=== PATIENT | female | born 1975 | race Caucasian/White ===

== ENCOUNTER 2019-07-21 19:36 | Emergency (ER) | payer BC ==
--- NOTE | 2019-07-21 19:51 | Emergency Department Record ---
History of Present Illness - General Chief Complaint: Ankle/Foot Injury Stated Complaint: L ANKLE INJURY Time Seen by Provider: 07/21/19 19:49 Source: Patient Mode of Arrival: Wheelchair Limitations: No limitations - History of Present Illness Initial Comments: 44 yo female presents with left ankle pain. She stepped off a 2 foot porch injuring her lateral ankle. No foot or knee pain. No history or prior foot or ankle fracture on the left. Intact skin. Onset/Timin -: Minutes(s) Injury: Ankle: Left Type of Injury: Inversion Place: Street/outdoors Severity: Moderate Severity scale (1-10): 7 Improves With: Nothing Worsens With: Movement, Palpation, Weight bearing Context: Jumping - Related Data Allergies Allergy/AdvReac Type Severity Reaction Status Date / Time bee venom protein (honey bee) Allergy Severe ANAPHYLAXIS Unverified 07/05/19 18:10 Travel Screening - Travel/Exposure Within Last 30 Days Have you traveled within the last 30 days?: No - Travel Symptoms Symptom Screening: None Review of Systems Constitutional: Denies: Chills, Fever, Malaise, Weakness Eyes: Denies: Eye discharge ENT: Denies: Congestion, Throat pain Respiratory: Denies: Cough Cardiovascular: Denies: Chest pain, Syncope Endocrine: Denies: Fatigue Gastrointestinal: Denies: Abdominal pain, Diarrhea, Nausea, Vomiting Genitourinary: Denies: Dysuria, Urgency Musculoskeletal: Reports: Arthralgia. Denies: Back pain Skin: Denies: Bruising, Change in color, Rash Neurological: Denies: Headache, Numbness, Tingling, Weakness Psychiatric: Denies: Anxiety Hematological/Lymphatic: Denies: Easy bleeding, Easy bruising Past Medical History - SOCIAL HISTORY Smoking Status: Never smoker Alcohol Use: None Drug Use: None - RESPIRATORY Hx Respiratory Disorders: Yes Hx Asthma: Yes - CARDIOVASCULAR Hx Cardio Disorders: No - NEURO Hx Neuro Disorders: No - GI Hx GI Disorders: No - Hx Genitourinary Disorders: No - ENDOCRINE Hx Endocrine Disorders: No - MUSCULOSKELETAL Hx Musculoskeletal Disorders: No - PSYCH Hx Psych Problems: No - HEMATOLOGY/ONCOLOGY Hx Hematology/Oncology Disorders: No Family Medical History Any Significant Family History?: No Family Hx Comment (NOT TO BE USED IN PLACE OF ITEMS BELOW): denies Physical Exam - General General Appearance: Alert, Oriented x3, Cooperative, No acute distress Limitations: No limitations - Head Head exam: Atraumatic - Eye Eye exam: Normal appearance. negative: Conjunctival injection - ENT ENT exam: Normal exam Ear exam: Normal external inspection Nasal Exam: Normal inspection Mouth exam: Normal external inspection - Neck Neck exam: Normal inspection - Cardiovascular Peripheral Pulses: 2+: Radial (L) - GI/Abdominal GI/Abdominal exam: Soft - Rectal Rectal exam: Deferred - exam: Deferred - Extremities Extremities exam: Joint swelling. negative: Normal inspection, Tenderness Image of Feet: 1 - swelling, tenderness - Neurological Neurological exam: Alert, Oriented X3 - Psychiatric Psychiatric exam: Normal affect, Normal mood - Skin Skin exam: Dry, Intact, Normal color, Warm Course Vital Signs 07/21/19 19:49 Temperature 98.3 F Pulse Rate [ 98 H Pulse Ox Probe] Respiratory 16 Rate Blood Pressure 136/75 [Left Arm] Pulse Ox 98 - Reevaluation(s) Reevaluation #1: 07/21/19 19:55 Declined pain medication Ice applied 07/21/19 20:35 XR reviewed No visible displaced fracture or dislocation Disposition Disposition: Discharge Clinical Impression: Ankle sprain Qualifiers: Encounter type: initial encounter Involved ligament of ankle: unspecified ligament Laterality: left Qualified Code(s): S93.402A - Sprain of unspecified ligament of left ankle, initial encounter Disposition: Home, Self-Care Condition: (1) Good Instructions: Ankle Sprain (ED) Additional Instructions: Use the crutches and boot for support and protection See your doctor in the next 10 days if the pain is still there Elevate the ankle to minimize swelling Tylenol or Motrin for pain Forms: Patient Portal Access Quality - Quality Measures Quality Measures: N/A - Blood Pressure Screening Does Patient Have Any of the Following: No Blood Pressure Classification: Pre-Hypertensive BP Reading Systolic Measurement: 129 Diastolic Measurement: 72 Screening for High Blood Pressure: < Pre-Hypertensive BP, F/U Documented > [G8950] Pre-Hypertensive Follow-up Interventions: Referral to alternative/primary care provider.
--- NOTE | 2019-07-22 19:57 | RADIOLOGY REPORT ---
EXAM: ANKLE LEFT 3 VIEWS HISTORY: PATIENT STEPPED OFF A PORCH AND INJURED LEFT ANKLE. TECHNIQUE: Three views left ankle. COMPARISON: No prior left ankle series. ENCOUNTER: Initial. FINDINGS: There is prominent soft tissue swelling laterally. On the AP view, there is a very tiny curvilinear calcific-like density inferior to the tip of the lateral malleolus, which could be a tiny avulsion fracture fragment. Elsewhere, no appearance to suggest a fracture identified in the left ankle. Prominent calcaneal spurs, both posteriorly and along the plantar surface. IMPRESSION: 1. PROMINENT SOFT TISSUE SWELLING LATERALLY. 2. POSSIBLE TINY AVULSION FRACTURE INFERIOR TO THE TIP OF THE LATERAL MALLEOLUS. 3. PROMINENT CALCANEAL SPURS. JOB NUMBER: [id number] MTDD
== END 2019-07-21 21:28 | disposition home or self-care (01) ==
LOC: ER 19:36
DX: S93.402A Sprain of unspecified ligament of left ankle, initial encounter (principal); S93.492A Sprain of other ligament of left ankle, initial encounter; W10.8XXA Fall (on) (from) other stairs and steps, initial encounter
CPT/HCPCS: 99283

== ENCOUNTER 2019-08-24 07:41 | Emergency (ER) | payer BC ==
--- NOTE | 2019-08-24 07:54 | Emergency Department Record ---
History of Present Illness - General Chief complaint: Vaginal bleeding Stated complaint: VAGINAL BLEEDING Time Seen by Provider: 08/24/19 07:44 Source: Patient Mode of Arrival: Ambulatory Limitations: No limitations - History of Present Illness Initial comments: 44 yo female presents with vaginal bleeding for about three weeks. The patient reports her last normal menstrual cycle was in May. In june it was irregular. She reports since then it has been irregular with small to large clots. No fever. No dysuria. She had a depot shot one year ago. No fever. No discharge. MD Complaint: Vaginal bleeding -: Week(s) (3) Location: Suprapubic Radiation: Other Severity: Moderate Quality: Cramping Consistency: Intermittent Improves with: None Worsens with: None Patient : No Associated Symptoms: Denies other symptoms - Related Data Allergies Allergy/AdvReac Type Severity Reaction Status Date / Time bee venom protein (honey bee) Allergy Severe ANAPHYLAXIS Verified 08/24/19 07:53 Review of Systems Constitutional: Denies: Chills, Fever, Malaise, Weakness Eyes: Denies: Eye discharge ENT: Denies: Congestion, Throat pain Respiratory: Denies: Cough, Dyspnea Cardiovascular: Denies: Chest pain, Palpitations, Syncope Endocrine: Denies: Fatigue Gastrointestinal: Reports: Abdominal pain. Denies: Diarrhea, Nausea, Vomiting Genitourinary: Reports: Abnormal menses Musculoskeletal: Denies: Arthralgia, Back pain Skin: Denies: Bruising, Change in color, Rash Neurological: Denies: Headache Psychiatric: Denies: Anxiety Hematological/Lymphatic: Denies: Easy bleeding, Easy bruising Past Medical History - SOCIAL HISTORY Smoking Status: Never smoker Drug Use: None - RESPIRATORY Hx Respiratory Disorders: Yes Hx Asthma: Yes - CARDIOVASCULAR Hx Cardio Disorders: No - NEURO Hx Neuro Disorders: No - GI Hx GI Disorders: No - Hx Genitourinary Disorders: No - ENDOCRINE Hx Endocrine Disorders: No - MUSCULOSKELETAL Hx Musculoskeletal Disorders: No - PSYCH Hx Psych Problems: No - HEMATOLOGY/ONCOLOGY Hx Hematology/Oncology Disorders: No Family Medical History Family Hx Comment (NOT TO BE USED IN PLACE OF ITEMS BELOW): denies Physical Exam - General General Appearance: Alert, Oriented x3, Cooperative, No acute distress Limitations: No limitations - Head Head exam: Atraumatic, Normal inspection - Eye Eye exam: Normal appearance. negative: PERRL, Conjunctival injection, Scleral icterus - ENT ENT exam: Normal exam, Mucous membranes moist Ear exam: Normal external inspection Nasal Exam: Normal inspection Mouth exam: Normal external inspection - Neck Neck exam: Normal inspection - Respiratory Respiratory exam: Normal lung sounds bilaterally. negative: Respiratory distress - Cardiovascular Cardiovascular Exam: Regular rate, Normal rhythm, Normal heart sounds - GI/Abdominal GI/Abdominal exam: Soft. negative: Distended, Guarding, Rebound, Rigid - Rectal Rectal exam: Deferred - exam: Normal bimanual exam, Vaginal bleeding (thin small amount of blood). negative: Abnormal external exam, Adnexal mass (L), Adnexal mass (R), Adnexal tenderness (L), Adnexal tenderness (R), Cervical discharge, cervical motion tenderness, Enlarged uterus, Normal external exam, Normal speculum exam, Vaginal discharge, Vaginal erythema - Extremities Extremities exam: Normal inspection. negative: Tenderness - Back Back exam: Denies: CVA tenderness (R), CVA tenderness (L) - Neurological Neurological exam: Alert, Oriented X3 - Psychiatric Psychiatric exam: Normal affect, Normal mood - Skin Skin exam: Dry, Intact, Normal color, Warm Course - Reevaluation(s) Reevaluation #1: 08/24/19 08:48 The labs were reviewed No acute changes on the CBC or CMP No acute changes 08/24/19 09:21 Wet prep is negative 08/24/19 09:36 US reviewed. irregular thickened endometrium, cysts notes 08/24/19 09:54 The results were discussed with the patient She will follow up with her PCP to discuss the results as well as a referral was placed to [facility] [facility] Medical Decision Making - Lab Data Result diagrams: 08/24/19 07:44 08/24/19 07:44 Disposition Disposition: Discharge Clinical Impression: Dysfunctional uterine bleeding Disposition: Home, Self-Care Condition: (1) Good Instructions: Dysfunctional Uterine Bleeding (ED) Additional Instructions: Review this ER visit and the tests performed with your family doctor Call your doctor for the next available follow up appointment Return to the ER for a recheck if worse, any new concerns or questions You have been referred to Gynecology for evaluation of the ultra sound and possible endometrial biopsy of the polyp to rule out cancer of other causes of bleeding Referrals: Hannah Osborne D.O. [DOCTOR OF OSTEOPATH] - [facility] [Provider Group] Forms: Patient Portal Access Time of Disposition: 09:54 Quality - Quality Measures Quality Measures: N/A - Blood Pressure Screening Does Patient Have Any of the Following: No Blood Pressure Classification: Hypertensive Reading Systolic Measurement: 142 Diastolic Measurement: 91 Screening for High Blood Pressure: < Pre-Hypertensive BP, F/U Documented > [G8950] Pre-Hypertensive Follow-up Interventions: Referral to alternative/primary care provider.
[2019-08-24 08:23] LABS: ABSOLUTE NEUTROPHIL COUNT 5.08; BASO % 0.1 % (0-6); EOS % 1.4 % (0-6); HEMATOCRIT 38.3 % (35.0-47.0); HEMOGLOBIN 12.1 gm/dl (11.6-16.0); LYMPH % 27.3 % (16-45); MEAN CELL VOLUME 81.1 fl (81-97); MEAN CORPUSCULAR HEMOGLOBIN 25.6 pg (27-33); MEAN CORPUSCULAR HGB CONC 31.6 g/dl (32-36); MEAN PLATELET VOLUME 9.6 fl (7.4-10.4); MONO % 5.2 % (0-9); PLATELET COUNT 317 K/uL (130-400); RED BLOOD COUNT 4.72 M/uL (3.80-5.40); RED CELL DISTRIBUTION WIDTH 14.3 % (11.5-14.5); WHITE BLOOD COUNT W/O DIFF 7.7 K/uL (4.2-12.2)
[2019-08-24 08:36] LABS: BLOOD UREA NITROGEN 11 mg/dL (6-20); CREATININE 0.6 mg/dL (0.5-0.9); EST GLOMERULAR FILTRATION RATE > 60 mL/min
[2019-08-24 08:39] LABS: GLUCOSE,RANDOM 98 mg/dL (74-109)
[2019-08-24 08:48] LABS: PARTIAL THROMBOPLASTIN TIME 22.9 SECONDS (24.5-39.1); PROTHROMBIN TIME (PATIENT) 10.4 SECONDS (9.5-12.1)
[2019-08-24 09:49] LABS: URINE APPEARANCE CLEAR; URINE BILIRUBIN NEGATIVE (NEGATIVE); URINE BLOOD LARGE (NEGATIVE); URINE COLOR YELLOW; URINE GLUCOSE (UA) NEGATIVE (NEGATIVE); URINE KETONE NEGATIVE (NEGATIVE); URINE LEUKOCYTE ESTERASE NEGATIVE (NEGATIVE); URINE NITRITE NEGATIVE (NEGATIVE); URINE PROTEIN NEGATIVE (NEGATIVE); URINE UROBILINOGEN 0.2 E.U./dL (0.20 - 1.00)
[2019-08-24 10:03] LABS: URINE WBC NONE SEEN (0-2/hpf)
--- NOTE | 2019-08-24 15:24 | ULTRASOUND REPORT ---
EXAM: ULTRASOUND OF THE PELVIS WITH TRANSVAGINAL HISTORY: VAGINAL BLEEDING. TECHNIQUE: Transabdominal and transvaginal ultrasound gr scale and color Doppler imaging was performed with static and standard images. Color and spectral Doppler imaging was performed. Transvaginal imaging was necessary for improved resolution. FINDINGS: UTERUS: 10 x 5 x 8 cm. ENDOMETRIUM: 15 x 7 x 12 mm nodule in the lower endometrium. Free fluid is present in the endometrial canal. Portions of the endometrium are not well visualized on this examination. MYOMETRIUM: Mildly heterogeneous. scar is present. Cervical nabothian cysts are present, the largest measures 14 mm. RIGHT OVARY: Follicles are present. LEFT OVARY: Not well visualized due to position, measures approximately 5.2 x 4.7 x 3.0 cm. There is a septated cyst versus two adjacent cysts which measure 3.3 x 2.4 x 2.8 cm in conglomerate. DOPPLER IMAGING: Waveforms do not image well. Arterial and venous waveforms appear intact in both ovaries to the extent visualized. ADDITIONAL FINDINGS: Small amount of free fluid. IMPRESSION: 1. ENDOMETRIAL POLYP IS SUSPECTED. CONSIDER BIOPSY OR MRI FOR FURTHER EVALUATION. 2. SEPTATED CYST IN THE LEFT OVARY, A FOLLOW-UP ULTRASOUND CAN BE PERFORMED IN 6-8 WEEKS. 3. NO EVIDENCE OF OVARIAN TORSION. JOB NUMBER: [id number] MTDD
[2019-08-27 16:14] LABS: GC SPECIMEN TYPE Vaginal
== END 2019-08-24 10:36 | disposition home or self-care (01) ==
LOC: ER 07:41
DX: N93.8 Other specified abnormal uterine and vaginal bleeding (principal)
CPT/HCPCS: 99284 ×2; 85025; 85730; 85610; 80048; 81001; 81025; 76856; 76830; Q0111; 87210